=== PATIENT | male | born 1955 | race Caucasian/White ===

== ENCOUNTER 2023-05-22 23:32 | Emergency (ER) | payer MEDICARE ==
[2023-05-22] MEDS ORDERED: TORAdol 30 mg Injection ONE (23:42)
[2023-05-22 23:46] VITALS: TEMP 97.7; O2SAT 99
[2023-05-22] MEDS: TORAdol 30 mg Injection IM ONE (23:57)
[2023-05-22] MEDS ORDERED: XYLOCAINE 1% HCL 20 ML MDV ONE (23:59)
[2023-05-22] MEDS ORDERED: Adacel Vial IM ONE (23:59)
[2023-05-23] MEDS: Adacel Vial IM ONE (00:03)
[2023-05-23 01:09] VITALS: BP 122/69; PULSE 81; RESP 16
--- NOTE | 2023-05-23 01:18 | ERPHSYRPT ---
- History of Present Illness Time Seen by Provider: 05/22/23 23:50 Source: patient Exam Limitations: no limitations Patient Subjective Stated Complaint: cut arm on chop saw Triage Nursing Assessment: pt ambulated into ER without diff. Sig other at bedside, pt alert and oriented x4. Pt cut his left lateral forearm on a chop saw. Laceration is 5.8 cm L x 1.5 cm W x 0.7 cm D. Small amount of bleeding noted upon arrival, stopped due to pt had it wrapped in a towel. Physician History: 68-year-old male presents to our ED for evaluation of a laceration to the ulnar aspect of his left distal forearm. Patient was working with a power saw when the power saw jerked backwards lacerating his left arm. Injury occurred is prior to arrival. Tetanus not up-to-date. Pain described as an ache that is localized. No radiation. Pain worse with manipulation of the laceration. The wound is oozing no pulsatile bleeding. No other injuries reported. Patient voices no other complaints or concerns at this time. Portions of this note were created with voice recognition technology. There may be grammatical, spelling, punctuation or sound alike errors Timing/Duration: today Severity: moderate Modifying Factors: Improves With: nothing Associated Symptoms: denies symptoms Allergies/Adverse Reactions: No Known Drug Allergies Allergy (Verified 05/23/23 01:10) Hx Tetanus, Diphtheria Vaccination/Date Given: No Hx Influenza Vaccination/Date Given: No Hx Pneumococcal Vaccination/Date Given: No Immunizations Up to Date: No Travel Risk - International Travel Have you traveled outside of the country in past 3 weeks: No - Coronavirus Screening Are you exhibiting any of the following symptoms?: No Close contact with a COVID-19 positive Pt in past 14-21 Days: No - Vaccine Status Have you recieved a Covid-19 vaccination: No - Review of Systems Constitutional: No Symptoms, No Fever, No Chills Eyes: No Symptoms Ears, Nose, & Throat: No Symptoms Respiratory: No Symptoms, No Cough, No Dyspnea Cardiac: No Symptoms, No Chest Pain, No Edema, No Syncope Abdominal/Gastrointestinal: No Symptoms, No Abdominal Pain, No Nausea, No Vomiting, No Diarrhea Genitourinary Symptoms: No Symptoms, No Dysuria Musculoskeletal: No Symptoms, No Back Pain, No Neck Pain Skin: No Symptoms, No Rash Neurological: No Symptoms, No Dizziness, No Focal Weakness, No Sensory Changes Psychological: No Symptoms Endocrine: No Symptoms Hematologic/Lymphatic: No Symptoms Immunological/Allergic: No Symptoms All Other Systems: Reviewed and Negative - Past Medical History Pertinent Past Medical History: Yes Neurological History: Seizures ENT History: No Pertinent History Cardiac History: No Pertinent History Respiratory History: Tuberculosis, Other Endocrine Medical History: No Pertinent History Musculoskeletal History: Degenerative Disk Disease GI Medical History: GERD History: No Pertinent History Psycho-Social History: Depression Male Reproductive Disorders: No Pertinent History Other Medical History: PT HAS HX OF COLLASPED LUNG, - Past Surgical History Past Surgical History: No Neuro Surgical History: No Pertinent History Cardiac: No Pertinent History Respiratory: No Pertinent History Gastrointestinal: No Pertinent History Genitourinary: No Pertinent History Musculoskeletal: No Pertinent History Male Surgical History: No Pertinent History - Social History Smoking Status: Current every day smoker How long have you smoked: 56 yrs Exposure to second hand smoke: Yes Drug Use: none Patient Lives Alone: No - Nursing Vital Signs Nursing Vital Signs: Initial Vital Signs Temperature 97.7 F 05/22/23 23:40 Pulse Rate 70 05/22/23 23:40 Respiratory Rate 18 05/22/23 23:40 Blood Pressure 125/73 05/22/23 23:40 O2 Sat by Pulse Oximetry 99 05/22/23 23:40 Pain Scale Pain Intensity 0 - Physical Exam General Appearance: no apparent distress, alert Eye Exam: PERRL/EOMI, eyes nml inspection Ears, Nose, Throat Exam: normal ENT inspection, TMs normal, pharynx normal, moist mucous membranes Neck Exam: normal inspection, non-tender, supple, full range of motion Respiratory Exam: normal breath sounds, lungs clear, No respiratory distress Cardiovascular Exam: regular rate/rhythm, normal heart sounds, normal peripheral pulses Gastrointestinal/Abdomen Exam: soft, normal bowel sounds, No tenderness, No mass Back Exam: normal inspection, normal range of motion, No CVA tenderness, No vertebral tenderness Extremity Exam: normal inspection, normal range of motion, pelvis stable, other (5.8 x 1.5 cm laceration of the ulnar aspect of the left distal forearm. There did not appear to be tenderness involvement. Extremities otherwise neurovascular tact distally compartments are soft cap refill less than 2 seconds.) Neurologic Exam: alert, oriented x 3, cooperative, normal mood/affect, nml cerebellar function, nml station & gait, sensation nml, No motor deficits Skin Exam: normal color, warm, dry, No rash Lymphatic Exam: No adenopathy SpO2 Interpretation: normal SpO2: 99 O2 Delivery: Room Air - Course Nursing assessment & vital signs reviewed: Yes - Radiology Exams Forearm X-ray Interpretation: Interpreted by me (No fracture dislocations. Overlying laceration observed) Ordered Tests: Active Orders 24 hr Category Date Time Status FOREARM Stat Exams 05/22/23 23:40 Taken Medication Summary Discontinued Medications Generic Name Dose Route Start Last Admin Trade Name Wilman PRN Reason Stop Dose Admin Diphtheria/Tetanus/Acell Pertussis 0.5 ml 05/22/23 23:52 05/23/23 00:03 Tdap --Diph,Pertuss(Acell),Tet Vac/Pf 0.5 Ml Vial IM 05/22/23 23:53 0.5 ml .ONCE ONE Administration Diphtheria/Tetanus/Acell Pertussis Confirm 05/22/23 23:59 Tdap --Diph,Pertuss(Acell),Tet Vac/Pf 0.5 Ml Vial Administered 05/23/23 00:00 Dose 0.5 ml IM .STK-MED ONE Ketorolac Tromethamine 30 mg 05/22/23 23:42 05/22/23 23:57 Ketorolac Tromethamine 30 Mg/Ml Inj IM 05/22/23 23:43 30 mg STAT ONE Administration Ketorolac Tromethamine Confirm 05/22/23 23:42 Ketorolac Tromethamine 30 Mg/Ml Inj Administered 05/22/23 23:43 Dose 30 mg .ROUTE .STK-MED ONE Lidocaine HCl Confirm 05/22/23 23:59 Lidocaine Hcl 1% 20 Ml Mdv 20 Ml Ml Administered 05/23/23 00:00 Dose 10 ml .ROUTE .STK-MED ONE - Progress Progress: improved (Patient) Progress Note: 68-year-old male presents emergency department for evaluation of laceration to the ulnar aspect of his left arm. Injury care is prior to arrival. Tetanus updated. Patient Toradol for pain control. 1% lidocaine used to repair wound. Approximate 10 simple interrupted sutures placed for wound closure. Patient neurovascular tact distally postprocedure. Keflex antibiotic forwarded to patient's pharmacy. Toradol pain medication forwarded to patient pharmacy as well. Patient agrees to follow-up with his primary care doctor within 48 hours for reevaluation. Portions of this note were created with voice recognition technology. There may be grammatical, spelling, punctuation or sound alike errors Complexity problem addressed is moderate acute complicated No critical care time Complaint of data reviewed and analyzed is moderate. Independent reviewed x-ray of the involved limb Risk of complication and or risk of morbidity/mortality of patient management is reviewed. Antibiotic and Toradol forwarded to patient's pharmacy Vital stable. Time spent to discharge patient is approximately 20 minutes. Plan of care established for shared decision making. No social determinants of health present impede follow-up. Portions of this note were created with voice recognition technology. There may be grammatical, spelling, punctuation or sound alike errors 05/23/23 01:24 05/23/23 01:26 Counseled pt/family regarding: diagnosis, need for follow-up, rad results - Departure Departure Disposition: Home Clinical Impression: Laceration Condition: Stable Critical Care Time: No Referrals: SUDHEER STONE MD [Primary Care Provider] - Follow up/PCP as directed Additional Instructions: Discharge/Care Plan AMANDA OVLERA was seen on 05/23/23 in the Emergency Room. The patient was counseled regarding Diagnosis,Lab results, Imaging studies, need for follow up and when to return to the Emergency Room. Prescriptions given: Discharge Note I have spoken with the patient and/or caregivers. I have explained the patient's condition, diagnosis and treatment plan based on the information available to me at this time. I have answered the patient's and/or caregiver's questions and addressed any concerns. The patient and/or caregivers have as good understanding of the patient's diagnosis, condition and treatment plan as can be expected at this point. The vital signs have been stable. The patient's condition is stable and appropriate for discharge from the emergency department. The patient will pursue further outpatient evaluation with the primary care physician or other designated or consulting physician as outlined in the discharge instructions. The patient and/or caregivers are agreeable to this plan of care and follow-up instructions have been explained in detail. The patient and/or caregivers have received these instruction. The patient/and or caregivers are aware that any significant change in condition or worsening of symptoms should prompt an immediate return to this or the closest emergency department or call 911. Prescriptions: Cephalexin Mh 500 mg [Keflex 500 mg] 500 mg PO TID #21 cap Ketorolac Trometh 10 mg Tab [TORAdol 10 MG TABLET] 10 mg PO TID 5 Days #15 tablet
[2023-05-23] MEDS: XYLOCAINE 1% HCL 20 ML MDV SUBDERMAL ONE (01:22)
--- NOTE | 2023-05-23 08:53 | XRAY ---
Indication: Pain following laceration. Comparison: None 2 view right forearm demonstrates osteopenia. No other bony, articular, or soft tissue abnormalities.
== END 2023-05-23 00:30 | disposition home or self-care (01) ==
LOC: ED 23:32
DX: S51.812A Laceration without foreign body of left forearm, initial encounter (principal); W31.2XXA Contact with powered woodworking and forming machines, initial encounter; Z28.310 Unvaccinated for COVID-19; Z72.0 Tobacco use; Z23 Encounter for immunization
CPT/HCPCS: 12002; 73090; 90471; 90715; 96372; 99283; J1885